=== PATIENT | female | born 1950 | race African-American/Black ===

== ENCOUNTER 2021-12-14 22:53 | Emergency (ER) | payer MEDICARE, OTHER ==
[2021-12-14 23:20] VITALS: BP 139/71; PULSE 90; TEMP 98.5; BMI 32.9
[2021-12-14] MEDS ORDERED: LIDOCAINE VISCOUS 2% ORAL/TOP 15 ML UNIT-DOSE CUP MM ONE (23:45)
[2021-12-15] MEDS ORDERED: LIDOCAINE VISCOUS 2% ORAL/TOP 15 ML UNIT-DOSE CUP ONE (00:03)
== END 2021-12-15 00:26 | disposition home or self-care (01) ==
LOC: JER 22:53
DX: R09.89 Other specified symptoms and signs involving the circulatory and respiratory systems (principal)
CPT/HCPCS: 99283-25

== ENCOUNTER 2022-05-07 07:20 | Day surgery (SDC) | payer MEDICARE, OTHER ==
[2022-05-07 09:48] VITALS: RESP 18; TEMP 98.8
[2022-05-07] MEDS ORDERED: FERRIC CARBOXYMALTOSE 750 MG in SODIUM CHLORIDE 250 ML IVPB ONE (10:00)
[2022-05-07 14:29] VITALS: BP 122/71; PULSE 55
== END 2022-05-07 11:30 | disposition home or self-care (01) ==
LOC: JONCNONCHE 07:20
PROVIDERS: ATTEND Internal Medicine Hematology & Oncology
PROC: 3E033GC Introduction of Other Therapeutic Substance into Peripheral Vein, Percutaneous Approach (ICD-10-PCS; principal; 2022-05-07)
DX: D50.9 Iron deficiency anemia, unspecified (principal)
CPT/HCPCS: 96365; J1439

== ENCOUNTER 2022-05-14 07:37 | Day surgery (SDC) | payer MEDICARE, OTHER ==
[2022-05-14] MEDS ORDERED: FERRIC CARBOXYMALTOSE 750 MG in SODIUM CHLORIDE 250 ML IVPB ONE (10:00)
[2022-05-14] MEDS ORDERED: SODIUM CHLORIDE 250 ML IV ONE (10:00)
[2022-05-14 10:19] VITALS: BP 154/72; PULSE 62; RESP 16; TEMP 98.2
== END 2022-05-14 10:30 | disposition home or self-care (01) ==
LOC: JONCNONCHE 07:37
PROVIDERS: ATTEND Internal Medicine Hematology & Oncology
PROC: 3E033GC Introduction of Other Therapeutic Substance into Peripheral Vein, Percutaneous Approach (ICD-10-PCS; principal; 2022-05-14)
DX: D50.9 Iron deficiency anemia, unspecified (principal)
CPT/HCPCS: 96365; J1439

== ENCOUNTER 2022-06-16 01:59 | Emergency (ER) | payer MEDICARE, OTHER | END 2022-06-16 06:01 | disposition home or self-care (01) | LOC: JER 01:59 | DX: M25.571 Pain in right ankle and joints of right foot (principal) | CPT/HCPCS: 73610-TC-RT-FY; 73630-TC-RT-FY; 99283-25 ==

== ENCOUNTER 2024-06-28 04:15 | Day surgery (SDC) | payer OTHER ==
[2024-06-26 17:54] VITALS: BMI 31.1
[2024-06-28] MEDS ORDERED: LIDOCAINE HCL/PF 1% SDV 5ML VIAL ONE (07:50)
[2024-06-28] MEDS ORDERED: BUPIVACAINE HCL/PF 0.75% 10 ML VIAL ONE (07:50)
[2024-06-28 08:37] VITALS: RESP 18
[2024-06-28] MEDS ORDERED: ACETAMINOPHEN 500 MG TABLET (FP) PO PRN (08:44)
[2024-06-28] MEDS: LIDOCAINE HCL 1% PRESERVATIVE FREE - 30ML VIAL IJ ONE (10:00)
[2024-06-28] MEDS: BUPIVACAINE HCL/PF 0.75% 10 ML VIAL NR ONE (10:05)
[2024-06-28 13:39] VITALS: BP 138/66; PULSE 62; TEMP 98
== END 2024-06-28 11:00 | disposition home or self-care (01) ==
LOC: JASU-SURG 04:15
PROVIDERS: ATTEND Pain Medicine Pain Medicine
PROC: 3E0T3BZ Introduction of Anesthetic Agent into Peripheral Nerves and Plexi, Percutaneous Approach (ICD-10-PCS; principal; 2024-06-28 10:00)
DX: M47.816 Spondylosis without myelopathy or radiculopathy, lumbar region (principal)
CPT/HCPCS: 76000-TC-FY